=== PATIENT | male | born 1975 | race Caucasian/White ===

== ENCOUNTER 2018-03-24 03:25 | Emergency (ER) | payer MEDICAID ==
[2018-03-24] MEDS ORDERED: NS 1,000 ML IV ONE (03:33)
[2018-03-24] MEDS ORDERED: OLANZapine 10 MG/2 ML VIAL IM ONE (03:34)
--- NOTE | 2018-03-24 03:37 | EDPHY ---
H & P Time Seen by Provider: 03/24/18 03:34 HPI/ROS: HPI CHIEF COMPLAINT: Drug intoxication HISTORY OF PRESENT ILLNESS: 42-year-old male, history and review of systems limited except for what EMS reports to us as the patient arrives to the emergency room intoxicated. Patient was found staring up the stars in a fixed position outside. Please make contact with him as he was standing for prolonged time staring upwards looking at the bin. When police made contact became agitated and somewhat aggressive with them. Appeared to be intoxicated. EMS was called. She brought in here on 4 point restraints received 5 mg IV Versed prior to arrival. Is given due to agitated behavior. Patient does admit to doing drugs tonight however will not be specific about what he did. He does appear intoxicated. [place] by EMS became agitated with them received 5 mg IV Versed in 4 point restraints. He now arrives to the emergency room more Calm Past Medical History: Unknown medical history Past Surgical History: Unknown surgical history Social History: Unknown Family History: Unkown ROS REVIEW OF SYSTEMS: Limited due to patient's clinical state. Exam Constitutional appears intoxicated, triage nursing summary reviewed, vital signs reviewed, awake/alert. Eyes normal conjunctivae and sclera, EOMI, dilated pupils bilaterally. HENT normal inspection, atraumatic, moist mucus membranes, no epistaxis, neck supple/ no meningismus, no raccoon eyes. Respiratory clear to auscultation bilaterally, normal breath sounds, no respiratory distress, no wheezing. Cardiovascular tachycardic, regular rhythm, no murmur, no edema, distal pulses normal. Gastrointestinal soft, non-tender, no rebound, no guarding, normal bowel sounds, no distension, no pulsatile mass. Genitourinary no CVA tenderness. Musculoskeletal no midline vertebral tenderness, full range of motion, no calf swelling, no tenderness of extremities, no meningismus, good pulses, neurovascularly intact. Skin pink, warm, & dry, no rash, skin atraumatic. Neurologic sleepy, intoxicated. Psychiatric normal mood/affect. Heme/Lymph/Immune no lymphadenopathy. Differential Diagnosis: Includes but is not limited to in a particular order drug intoxication, alcohol intoxication, electrolyte disturbance, infection Medical Decision Making: Plan for this patient IV establishment with cardiac cath lab technologist, IV fluid bolus, check urine drug screen, serum alcohol level, electrolytes. Vital signs. Re-evaluation: 0613: Patient up ambulatory throughout the emergency room without difficulty. Answer questions appropriately. 0648: I did re-evaluate the patient this time patient no acute distress. Lucid. Has no complaints. And would like to be discharged. Patient unsure what he took last night. He states he was drinking alcohol. Marijuana, possible other drugs. Vital signs are stable. He did receive Zyprexa here in emergency room and now is completely lucid answer questions appropriately denies feeling bad or any complaints. However patient is requesting to be discharged. Source: Patient, EMS - Medical/Surgical History Hx Asthma: No Hx Chronic Respiratory Disease: No Hx Diabetes: No Hx Cardiac Disease: No Hx Renal Disease: No Hx Cirrhosis: No Hx Alcoholism: Yes Hx HIV/AIDS: No Hx Splenectomy or Spleen Trauma: No - Social History Smoking Status: Current every day smoker Constitutional: Initial Vital Signs Heart Rate 124 H 03/24/18 03:36 Respiratory Rate 22 H 03/24/18 03:36 Blood Pressure 126/78 H 03/24/18 03:36 O2 Sat (%) 96 03/24/18 03:36 O2 Delivery Mode Room Air Allergies/Adverse Reactions: No Known Allergies Allergy (Verified 03/24/18 03:38) Home Medications: Medication Instructions Recorded Cephalexin [Keflex] 500 mg PO QID #28 cap 02/14/16 Sulfamethox/Tmp 800/160 mg 1 tab PO BID@1000,2200 #14 tab 02/14/16 [Bactrim Ds] Medical Decision Making - Data Points Laboratory Results: Laboratory Results 03/24/18 03:25 03/24/18 03:25 03/24/18 03/24/18 03/24/18 06:13 03:25 03:25 WBC 12.53 10^3/uL H 10^3/uL (3.80-9.50) RBC 4.84 10^6/uL 10^6/uL (4.40-6.38) Hgb 15.1 g/dL g/dL (13.7-17.5) Hct 44.9 % % (40.0-51.0) MCV 92.8 fL fL (81.5-99.8) MCH 31.2 pg pg (27.9-34.1) MCHC 33.6 g/dL g/dL (32.4-36.7) RDW 13.2 % % (11.5-15.2) Plt Count 301 10^3/uL 10^3/uL (150-400) MPV 9.5 fL fL (8.7-11.7) Neut % (Auto) 81.5 % H % (39.3-74.2) Lymph % (Auto) 14.8 % L % (15.0-45.0) Casey % (Auto) 2.9 % L % (4.5-13.0) Eos % (Auto) 0.1 % L % (0.6-7.6) Baso % (Auto) 0.3 % % (0.3-1.7) Nucleat RBC Rel Count 0.0 % % (0.0-0.2) Absolute Neuts (auto) 10.21 10^3/uL H 10^3/uL (1.70-6.50) Absolute Lymphs (auto) 1.86 10^3/uL 10^3/uL (1.00-3.00) Absolute Monos (auto) 0.36 10^3/uL 10^3/uL (0.30-0.80) Absolute Eos (auto) 0.01 10^3/uL L 10^3/uL (0.03-0.40) Absolute Basos (auto) 0.04 10^3/uL 10^3/uL (0.02-0.10) Absolute Nucleated RBC 0.00 10^3/uL 10^3/uL (0-0.01) Immature Gran % 0.4 % % (0.0-1.1) Immature Gran # 0.05 10^3/uL 10^3/uL (0.00-0.10) Sodium 144 mEq/L mEq/L (135-145) Potassium 4.0 mEq/L mEq/L (3.3-5.0) Chloride 106 mEq/L mEq/L (97-110) Carbon Dioxide 20 mEq/l L mEq/l (22-31) Anion Gap 18 mEq/L H mEq/L (8-16) BUN 10 mg/dL mg/dL (7-23) Creatinine 0.9 mg/dL mg/dL (0.7-1.3) Estimated GFR > 60 Glucose 171 mg/dL H mg/dL (70-100) Calcium 9.6 mg/dL mg/dL (8.5-10.4) Urine Opiates Screen NEGATIVE (NEGATIVE) Urine Barbiturates NEGATIVE (NEGATIVE) Ur Phencyclidine Scrn NEGATIVE (NEGATIVE) Ur Amphetamine Screen NEGATIVE (NEGATIVE) U Benzodiazepines Scrn NEGATIVE (NEGATIVE) Urine Cocaine Screen NEGATIVE (NEGATIVE) U Marijuana (THC) Screen NON-NEGATIVE H (NEGATIVE) Ethyl Alcohol 45 mg/dL H mg/dL (0-10) Medications Given: Discontinued Medications Sodium Chloride (Ns) 1,000 mls @ 0 mls/hr IV ONCE ONE PRN Reason: Wide Open Stop: 03/24/18 03:34 Last Admin: 03/24/18 03:45 Dose: 1,000 mls Olanzapine (Zyprexa Injection) 10 mg IM EDNOW ONE Stop: 03/24/18 03:35 Last Admin: 03/24/18 03:44 Dose: 10 mg Departure - Departure Disposition: Home, Routine, Self-Care Clinical Impression: Polysubstance abuse Condition: Good Instructions: Polysubstance Abuse (ED) Referrals: Patient,NotPresent [Unknown] - As per Instructions
[2018-03-24 03:44] LABS: PLATELET COUNT 301 10^3/uL (150-400)
[2018-03-24] MEDS ORDERED: LEVALBUTEROL 0.63 MG/3 ML DEYVIAL ONE (04:05)
[2018-03-24 06:59] VITALS: BP 128/73
== END 2018-03-24 06:58 | disposition home or self-care (01) ==
LOC: EDUNIT#
DX: F12.929 Cannabis use, unspecified with intoxication, unspecified (principal); F10.129 Alcohol abuse with intoxication, unspecified; Y90.2 Blood alcohol level of 40-59 mg/100 ml
CPT/HCPCS: 80305; G0480